=== PATIENT | female | born 1995 | race African-American/Black ===

== ENCOUNTER 2020-01-12 14:09 | Outpatient (CLI) | payer MEDICAID ==
[~2020-01-12 14:09] MED LIST: FERRIC CARBOXYMALTOSE 750 MG in NORMAL SALINE 250 ML IV PRN; NORMAL SALINE 250 ML IV PRN
[2020-01-12 14:28] VITALS: BP 142/79
== END 2020-01-12 15:34 | disposition home or self-care (01) ==
LOC: II 14:09 → 5TH 14:11 → II 15:34
PROVIDERS: ATTEND Student in an Organized Health Care Education/Training Program
DX: O99.019 Anemia complicating pregnancy, unspecified trimester (principal)
CPT/HCPCS: 96365; J7050; J1439

== ENCOUNTER 2020-01-19 08:11 | Outpatient (CLI) | payer MEDICAID ==
[2020-01-19 09:34] VITALS: BP 126/79
== END 2020-01-19 09:30 | disposition home or self-care (01) ==
LOC: II 08:11 → 5TH 08:14 → II 09:30
PROVIDERS: ATTEND Student in an Organized Health Care Education/Training Program
DX: O99.019 Anemia complicating pregnancy, unspecified trimester (principal)
CPT/HCPCS: 96365; J7050; J1439

== ENCOUNTER 2020-01-26 06:36 | Inpatient (IN) | payer MEDICAID ==
[2020-01-20 12:48] LABS: HEMATOCRIT 33.5 % (36.0-47.0); MEAN CORPUSCULAR HEMOGLOBIN 24.9 pg (27.0-33.4); MEAN CORPUSCULAR HGB CONC 32.8 g/dL (32.0-36.0); MEAN CORPUSCULAR VOLUME 76 fl (80-97); RED BLOOD COUNT 4.41 10^6/uL (3.72-5.28); RED CELL DISTRIBUTION WIDTH 16.9 % (11.5-14.0)
[2020-01-20 12:50] LABS: APPEARANCE,URINE SLIGHTLY-CLOUDY; BILIRUBIN,URINE NEGATIVE (NEGATIVE); GLUCOSE, URINE NEGATIVE (NEGATIVE); KETONES,URINE NEGATIVE (NEGATIVE); LEUKOCYTE ESTERASE,URINE NEGATIVE (NEGATIVE); NITRITE,URINE NEGATIVE (NEGATIVE); PROTEIN,URINE 30 mg/dL (NEGATIVE); URINE SPECIFIC GRAVITY 1.019
[2020-01-20 12:51] LABS: COLOR,URINE DARK YELLOW
[2020-01-20 13:04] LABS: URINE AMPHETAMINES SCREEN NEGATIVE; URINE BARBITURATES SCREEN NEGATIVE; URINE BENZODIAZEPINES SCREEN NEGATIVE; URINE COCAINE SCREEN NEGATIVE; URINE MARIJUANA (THC) SCREEN NEGATIVE; URINE METHADONE SCREEN NEGATIVE; URINE PHENCYCLIDINE SCREEN NEGATIVE
[2020-01-20 13:13] LABS: ABSOLUTE LYMPHOCYTES# (MANUAL) 1.5 10^3/uL (0.5-4.7); ABSOLUTE MONOCYTES # (MANUAL) 0.7 10^3/uL (0.1-1.4); BASOPHILS % (MANUAL) 0 % (0-2); EOSINOPHILS % (MANUAL) 1 % (0-6); LYMPHOCYTES % (MANUAL) 29 % (13-45); MONOCYTES % (MANUAL) 13 % (3-13); SEGMENTED NEUTROPHILS % (MAN) 57 % (42-78); TOTAL CELLS COUNTED 100
[2020-01-20 13:14] LABS: ANISOCYTOSIS 1+; POLYCHROMASIA SLIGHT
[2020-01-20 13:15] LABS: PLATELET CLUMPS PRESENT; PLATELET COMMENT ADEQUATE
[2020-01-20 13:16] LABS: PLATELET COUNT 252 10^3/uL (150-450)
[~2020-01-26 06:36] MED LIST changes: +CEFAZOLIN 2 GM/D5W RTU 2 GM/50 ML RTUPB IV PRN; -FERRIC CARBOXYMALTOSE 750 MG in NORMAL SALINE 250 ML IV PRN; +LACTATED RINGERS 1000 ML IV PRN; +LIDOCAINE 0.5% INJ-PF (5 MG/ML) 50 ML SDV SUBCUT PRN; -NORMAL SALINE 250 ML IV PRN; +RINGERS SOLUTION,LACTATED 1,500 ML IV PRN
[2020-01-26] MEDS ORDERED: OXYTOCIN 10 UNIT/ML VIAL ONE (08:28)
[2020-01-26] MEDS ORDERED: MIDAZOLAM 2 MG/2 ML INJ ONE (08:28)
[2020-01-26] MEDS ORDERED: CITRIC ACID/SODIUM CITRATE ORAL SOLN 15 ML UDCUP ONE (08:28)
[2020-01-26] MEDS ORDERED: OXYTOCIN/0.9 % SODIUM CHLORIDE 0 UNIT/0 ML RTUINJ ONE (08:28)
[2020-01-26] MEDS ORDERED: BUPIVACAINE HCL 0.25 % INJ/PF (2.5 MG/1 ML) 30 ML VIAL ONE (08:29)
[2020-01-26] MEDS ORDERED: ONDANSETRON HCL INJ/PF 4 MG/2 ML SDV ONE (08:29)
[2020-01-26 08:34] VITALS: BP 124/69
[2020-01-27] MEDS ORDERED: DIPHENHYDRAMINE HCL 50 MG/ML VIAL IV PRN (08:52)
[2020-01-27] MEDS ORDERED: MEPERIDINE HCL/PF INJ 25 MG/1 ML DISP.SYRIN IV PRN (08:52)
[2020-01-27] MEDS ORDERED: PROMETHAZINE HCL INJ 25 MG/1 ML VIAL IV PRN ×2 (08:52)
[2020-01-27] MEDS ORDERED: ONDANSETRON HCL INJ/PF 4 MG/2 ML SDV IV PRN (08:52)
[2020-01-27] MEDS ORDERED: FENTANYL CITRATE INJ/PF 100 MCG/2 ML AMPUL IV PRN ×3 (08:52)
== END 2020-01-26 15:00 | disposition home or self-care (01) | DRG 833 ==
LOC: INTOOBSV 07:51 → 2S 07:51 → OBSVTOIN 08:00
PROVIDERS: ADMIT Obstetrics & Gynecology; ATTEND Obstetrics & Gynecology
DX: O34.219 Maternal care for unspecified type scar from previous cesarean delivery (principal); Z3A.39 39 weeks gestation of pregnancy
CPT/HCPCS: 36415; 59025; 80307; 81001; 85025; 86850; 86900; 86901; 87635; C9803; J2250; J2405; J2590; J3490

== ENCOUNTER 2020-01-27 01:31 | Inpatient (IN) | payer MEDICAID ==
[2020-01-27] MEDS ORDERED: CEFAZOLIN 2 GM/D5W RTU 2 GM/50 ML RTUPB IV PRN (06:02)
[2020-01-27] MEDS ORDERED: RINGERS SOLUTION,LACTATED 1,500 ML IV ONE (06:15)
[2020-01-27] MEDS ORDERED: LIDOCAINE 0.5% INJ-PF (5 MG/ML) 50 ML SDV SUBCUT PRN (06:19)
[2020-01-27] MEDS ORDERED: LACTATED RINGERS 1000 ML IV PRN (06:19)
[2020-01-27] MEDS ORDERED: KETOROLAC TROMETHAMINE INJ/PF 30 MG/1 ML SDV ONE (07:24)
[2020-01-27] MEDS ORDERED: OXYTOCIN 10 UNIT/ML VIAL ONE (07:24)
[2020-01-27] MEDS ORDERED: MIDAZOLAM 2 MG/2 ML INJ ONE (07:25)
[2020-01-27] MEDS ORDERED: ACETAMINOPHEN 1,000 MG/100 ML RTUPB IV ONE (07:25)
[2020-01-27] MEDS ORDERED: ONDANSETRON HCL INJ/PF 4 MG/2 ML SDV ONE (07:25)
[2020-01-27] MEDS ORDERED: PHENYLEPHRINE HCL INJ/PF 10 MG/1 ML SDV ONE (07:25)
[2020-01-27] MEDS ORDERED: METHYLERGONOVINE MALEATE INJ/PF 0.2 MG/1 ML AMPULE ONE (07:25)
[2020-01-27] MEDS ORDERED: EPHEDRINE SULFATE INJ 50 MG/1 ML AMPULE ONE (07:25)
[2020-01-27] MEDS ORDERED: FENTANYL CITRATE INJ/PF 100 MCG/2 ML AMPUL ONE (07:25)
[2020-01-27] MEDS ORDERED: ROPIVACAINE HCL 0.2% INJ/PF (2 MG/ML) 20 ML SDV ONE (07:26)
--- NOTE | 2020-01-27 09:24 | Operative Report ---
Operative Report DATE OF SURGERY: 01/27/20 PREOPERATIVE DIAGNOSIS: Patient desires a repeat to prevent risk of u terine rupture POSTOPERATIVE DIAGNOSIS: Same OPERATION: Repeat via low transverse uterine incision SURGEON: BOUCHRA HEAD ANESTHESIA: GA TISSUE REMOVED OR ALTERED: Placenta COMPLICATIONS: None ESTIMATED BLOOD LOSS: 400 cc INTRAOPERATIVE FINDINGS: Viable female crying at delivery, meconium noted, no amniotic fluid noted. PROCEDURE: Patient was taken to the OR and placed in supine position after her spinal anesthesia. She is prepared and draped in sterile fashion. Dowling was placed for drainage of the bladder. Low transverse incision was made and carried down the level of the fascia. This was done excising her old keloid scar. The fascial incision was made with knife and extended bilaterally with curved Daniel scissors. The fascia was off the rectus muscles using sharp and blunt dissection. The rectus muscles are in the midline. The peritoneum was entered without incident. Bladder blade was placed in uterine segment was identified. A low transverse incision was made creating a bladder flap. Bladder blade was placed low transverse uterine incision was made with the knife and extended with fingertips. The baby was delivered with some fundal pressure. Mouth and nose were suctioned free. The cord is doubly clamped and cut. Baby is passed off to the mop man in attendance. The the uterus was very floppy at first however after the IV oxytocin was given if firmed up nicely. Also meconium was noted however there was very little amniotic fluid. The placenta was manually extracted with trailing membranes. The uterus was externalized wrapped in a moist lap sponge. Uterine contents wiped free. Uterus was closed with a running locking layer of 0 chromic suture using the second layer to imbricate the first completing a double layer closure of the uterus. The serosa was closed with a running 2-0 chromic stitch. The pelvis was irrigated and suctioned free of fluid the uterus was replaced in the abdomen. The abdominal wall peritoneum was closed with running 2-0 chromic stitch. Fascia was closed with a running 0 Vicryl in 2 segments. Wagner's layer was brought together with 0 plain gut stitch and the skin was closed with running subcuticular 4-0 undyed Vicryl stitch. The wound was dressed mother and baby did well.
[2020-01-27] MEDS ORDERED: ACETAMINOPHEN 325 MG TABLET PO PRN (09:26)
[2020-01-27] MEDS ORDERED: MEASLES,MUMPS&RUBELLA VACC/PF 0.5 ML VIAL SUBCUT PRN (09:26)
[2020-01-27] MEDS ORDERED: OXYCODONE-ACETAMINOPHEN 5-325 MG TABLET PO PRN (09:26)
[2020-01-27] MEDS ORDERED: RINGERS SOLUTION,LACTATED 1,000 ML IV PRN (09:26)
[2020-01-27] MEDS ORDERED: DIPH/PERTUSS(ACELL)/TETANUS VAC/PF 0.5 ML SYR (>=10YO) IM PRN (09:26)
[2020-01-27] MEDS ORDERED: ACETAMINOPHEN 1,000 MG/100 ML RTUPB IV PRN (09:26)
[2020-01-27] MEDS ORDERED: OXYTOCIN/0.9 % SODIUM CHLORIDE 30 UNIT/500 ML RTUINJ IV PRN (09:26)
[2020-01-27] MEDS ORDERED: HYDROMORPHONE HCL INJ/PF 2 MG/ML AMPULE IV PRN (09:26)
[2020-01-27] MEDS ORDERED: SIMETHICONE 80 MG TAB.CHEW PO PRN (09:26)
[2020-01-27] MEDS ORDERED: HYDROMORPHONE HCL INJ/PF 2 MG/ML AMPULE ONE (09:52)
[2020-01-27] MEDS ORDERED: SUCCINYLCHOLINE CHLORIDE INJ 200 MG/10 ML VIAL ONE (09:52)
[2020-01-27] MEDS ORDERED: PROMETHAZINE HCL INJ 25 MG/1 ML VIAL ONE (09:55)
[2020-01-27] MEDS: PROMETHAZINE HCL INJ 25 MG/1 ML VIAL IV PRN (09:56)
--- NOTE | 2020-01-27 10:20 | Delivery Summary ---
Del Sum A-C Datetime Report Generated by CPN: 01/27/2020 10:20 DELIVERY PERSONNEL DELIVERY PERSONNEL: [id number] Delivery Doctor:: Chrissy Tate MD MASTER SHIP:: Palmira Kirk CRNA Php Engineer:: Dee Dee Kumar RN Neonatal Nurse Practitioner:: JUANIS Juarez Nursery Nurse:: Karissa Platt RN Catechist/TECHNICAL PROJECT MANAGER: Jessenia Cuellar CST Catechist/TECHNICAL PROJECT MANAGER: Kim Shipman CST Additional Personnel: : Vlad Luevano RN MATERNAL INFORMATION Delivery Anesthesia: General Medications After Delivery: Pitocin 30 Units in 500ml NS/D5W; Pitocin Drip 20 Units/1000ml NSS Delivery QBL: 2730 Maternal Complications: None LABOR SUMMARY Attempted: No LABOR INFORMATION Reason for Induction: Not Applicable Oxytocin: N/A Group B Beta Strep: Positive Antibiotics # of Doses: n/a Steroids Given: None Reason Steroids Not Administered: Not Applicable MEMBRANES Membranes Rupture Method: Artificial Rupture of Membranes: 01/27/2020 08:49 Length of Rupture (hr): 0.00 Amniotic Fluid Amount: None STAGES OF LABOR Stage 3 hr: 0 Stage 3 min: 1 CSECTION DELIVERY Primary Indication: Repeat Elective Secondary Indication: N/A CSection Urgency: Scheduled CSection Incidence: Repeat Labor: N/A Elective: Elective CSection Incision: Lower Uterine Transverse BABY A INFORMATION Delivery Date/Time: 01/27/2020 08:49 Method of Delivery: Nurse Controlled Delivery: No Born in Route : No : N/A Forceps: N/A Vacuum Extraction: N/A Shoulder Dystocia : No PRESENTATION/POSITION BABY A Presentation: Cephalic Cephalic Presentation: Vertex Breech Presentation: N/A PLACENTA INFORMATION BABY A Placenta Delivery Time : 01/27/2020 08:50 Placenta Method of Delivery: Manual Removal Placenta Status: Delivered SCORES BABY A Heart Rate 1 min: >100 bpm Resp Effort 1 min: Good Cry Reflex Irritability 1 min: Cough or Sneeze or Pulls Away Muscle Tone 1 min: Some Flexion of Extremities Color 1 min: Blue/Pale Resuscitation Effort 1 min: Tactile Stimulation SCORE 1 MIN: 7 Heart Rate 5 min: >100 bpm Resp Effort 5 min: Good Cry Reflex Irritability 5 min: Cough or Sneeze or Pulls Away Muscle Tone 5 min: Some Flexion of Extremities Color 5 min: Body Barnum, Extremities Blue Resuscitation Effort 5 min: Tactile Stimulation SCORE 5 MIN: 8 INFANT INFORMATION BABY A Gestational Age at Delivery: 39.5 Gestational Status: Full Term- 39- 40.6 Weeks Outcome : Liveborn Condition : Stable Sex: Female IDENTIFICATION BABY A Infant Verification Date/Time: 01/27/2020 08:52 ID Band Number: [id number] Mother's Name Verified: Yes RN Verifying Infant: HamiltonkiJAY and Judy Platt RN WEIGHT/LENGTH BABY A Infant Birthweight (gm): 3050 Weight (lb): 6 Weight (oz): 12 Length (in): 20.25 Length (cm): 51.44 CORD INFORMATION BABY A No. Cord Vessels: 3 Nuchal Cord : N/A Cord Blood Taken: Yes-For Eval (Mom's Blood Type - or O+) Infant Suction: None ASSESSMENT BABY A Skin to Skin: No BABY B INFORMATION : N/A
[2020-01-27] MEDS ORDERED: OXYTOCIN/0.9 % SODIUM CHLORIDE 30 UNIT/500 ML RTUINJ ONE (10:47)
[2020-01-27 10:51] LABS: ABSOLUTE LYMPHOCYTES (AUTO) 1.4 10^3/uL (0.5-4.7); ABSOLUTE MONOCYTES (AUTO) 0.5 10^3/uL (0.1-1.4); ABSOLUTE NEUT (AUTO) 4.7 10^3/uL (1.7-8.2); BASOPHILS % (AUTO) 0.1 % (0-2); EOSINOPHILS % (AUTO) 0.2 % (0-6); HEMATOCRIT 28.1 % (36.0-47.0); HEMOGLOBIN 9.1 g/dL (12.0-15.5); LYMPHOCYTES % (AUTO) 20.7 % (13-45); MEAN CORPUSCULAR HGB CONC 32.5 g/dL (32.0-36.0); MEAN CORPUSCULAR VOLUME 77 fl (80-97); MONOCYTES % (AUTO) 8.2 % (3-13); PLATELET COUNT 200 10^3/uL (150-450); RED BLOOD COUNT 3.65 10^6/uL (3.72-5.28); RED CELL DISTRIBUTION WIDTH 18.6 % (11.5-14.0); SEGMENTED NEUTROPHILS % (AUTO) 70.8 % (42-78); TOTAL CELLS COUNTED % (AUTO) 100 %; WHITE BLOOD COUNT 6.6 10^3/uL (4.0-10.5)
[2020-01-27] MEDS: OXYCODONE-ACETAMINOPHEN 5-325 MG TABLET PO PRN ×3 (12:53→22:33)
[2020-01-27] MEDS: PRENATAL VITAMIN W DHA CAPSULE PO SCH (13:46)
[2020-01-27] MEDS: DOCUSATE SODIUM 100 MG CAPSULE PO SCH ×2 (13:46→17:57)
[2020-01-27 14:46] LABS: HEMATOCRIT 26.1 % (36.0-47.0); HEMOGLOBIN 8.6 g/dL (12.0-15.5); MEAN CORPUSCULAR HEMOGLOBIN 25.3 pg (27.0-33.4); MEAN CORPUSCULAR HGB CONC 32.9 g/dL (32.0-36.0); MEAN CORPUSCULAR VOLUME 77 fl (80-97); PLATELET COUNT 215 10^3/uL (150-450); WHITE BLOOD COUNT 9.1 10^3/uL (4.0-10.5)
[2020-01-27] MEDS: KETOROLAC TROMETHAMINE INJ/PF 30 MG/1 ML SDV IV SCH (17:57)
[2020-01-28] MEDS: KETOROLAC TROMETHAMINE INJ/PF 30 MG/1 ML SDV IV SCH (01:26)
[2020-01-28] MEDS: PROMETHAZINE HCL INJ 25 MG/1 ML VIAL IV PRN (01:31)
[2020-01-28] MEDS ORDERED: LIDOCAINE 0.5% INJ-PF (5 MG/ML) 50 ML SDV SUBCUT PRN (05:00)
[2020-01-28] MEDS ORDERED: LACTATED RINGERS 1000 ML IV PRN (05:00)
[2020-01-28 06:24] LABS: HEMATOCRIT 20.6 % (36.0-47.0); MEAN CORPUSCULAR HEMOGLOBIN 25.3 pg (27.0-33.4); MEAN CORPUSCULAR VOLUME 77 fl (80-97); PLATELET COUNT 190 10^3/uL (150-450); RED BLOOD COUNT 2.69 10^6/uL (3.72-5.28); RED CELL DISTRIBUTION WIDTH 18.7 % (11.5-14.0); WHITE BLOOD COUNT 8.1 10^3/uL (4.0-10.5)
[2020-01-28 06:27] LABS: HEMOGLOBIN 6.8 g/dL (12.0-15.5)
[2020-01-28] MEDS: IBUPROFEN 800 MG TABLET PO SCH ×3 (07:01→17:13)
[2020-01-28] MEDS: OXYCODONE-ACETAMINOPHEN 5-325 MG TABLET PO PRN ×3 (08:54→20:00)
[2020-01-28] MEDS ORDERED: MEASLES,MUMPS&RUBELLA VACC/PF 0.5 ML VIAL SUBCUT PRN (10:00)
[2020-01-28] MEDS ORDERED: DIPH/PERTUSS(ACELL)/TETANUS VAC/PF 0.5 ML SYR (>=10YO) IM PRN (10:00)
[2020-01-28] MEDS ORDERED: PROMETHAZINE HCL INJ 25 MG/1 ML VIAL IV PRN (10:00)
[2020-01-28] MEDS: DOCUSATE SODIUM 100 MG CAPSULE PO SCH ×2 (10:20→17:14)
[2020-01-28] MEDS: PRENATAL VITAMIN W DHA CAPSULE PO SCH (10:20)
--- NOTE | 2020-01-28 12:32 | PDOC PROGRESS REPORT ---
Subjective-OB Progress Note for:: 01/28/20 Subjective: laying in bed, good appetite, receiving 1 unit of blood, burping, c/o of pain in spinal area where spinal tap was attempted Physical Exam (OB) Vital Signs: Temp Pulse Resp BP Pulse Ox 97.9 F 114 H 18 117/67 100 01/28/20 10:51 01/28/20 10:51 01/28/20 10:51 01/28/20 10:51 01/28/20 10:51 Intake & Output 01/27/20 01/28/20 01/29/20 06:59 06:59 06:59 Intake Total 400 0 Output Total 800 300 Balance -400 -300 Weight 92.986 kg - PIH/Pre-Eclampsia DTR's: 1 + Clonus: Negative Headache: Absent Epigastric Pain: No Visual Changes: No - Dressing Removed: Yes Incision: Dressing - Lochia Lochia Amount: Small 10-25 ml Lochia Color: Rubra/Red - Abdomen Description: Soft, Round Hernia Present: No Fundal Description: Firm, Midline Fundal Height: u/u - u/2 Objective-Diagnostic Laboratory: 01/28/20 06:05 01/27/20 01/27/20 01/28/20 10:54 14:19 06:05 WBC 9.1 8.1 RBC 3.40 L 2.69 L Hgb 8.6 L 6.8 L Hct 26.1 L 20.6 L MCV 77 L 77 L MCH 25.3 L 25.3 L MCHC 32.9 33.0 RDW 19.0 H 18.7 H Plt Count 215 190 Blood Type O POSITIVE Antibody Screen NEGATIVE Assessment and Plan(PN) - Assessment and Plan (1) Status post repeat low transverse section Is this a current diagnosis for this admission?: Yes (2) Anemia, posthemorrhagic, acute Is this a current diagnosis for this admission?: Yes - Time Spent with Patient Time with patient: Less than 15 minutes Medications reviewed and adjusted accordingly: Yes - Disposition Anticipated Discharge Disposition: Home, Self Care Anticipated Discharge Timeframe: within 24 hours
[2020-01-28 15:42] LABS: HEMATOCRIT 25.8 % (36.0-47.0); HEMOGLOBIN 8.4 g/dL (12.0-15.5); MEAN CORPUSCULAR HEMOGLOBIN 25.6 pg (27.0-33.4); MEAN CORPUSCULAR HGB CONC 32.6 g/dL (32.0-36.0); MEAN CORPUSCULAR VOLUME 79 fl (80-97); PLATELET COUNT 215 10^3/uL (150-450); RED BLOOD COUNT 3.28 10^6/uL (3.72-5.28); RED CELL DISTRIBUTION WIDTH 18.2 % (11.5-14.0); WHITE BLOOD COUNT 9.8 10^3/uL (4.0-10.5)
[2020-01-29] MEDS: IBUPROFEN 800 MG TABLET PO SCH ×4 (00:26→17:11)
[2020-01-29] MEDS: OXYCODONE-ACETAMINOPHEN 5-325 MG TABLET PO PRN ×4 (05:56→20:25)
[2020-01-29] MEDS: PRENATAL VITAMIN W DHA CAPSULE PO SCH (09:24)
[2020-01-29] MEDS: DOCUSATE SODIUM 100 MG CAPSULE PO SCH ×2 (09:24→17:11)
--- NOTE | 2020-01-29 10:48 | PDOC DISCHARGE SUMMARY ---
Impression - Admit/DC Date/PCP Admission Date/Primary Care Provider: 01/27/20 04:50 MIAH ROSE MD Discharge Date: 01/29/20 - POD #2, doing well, no complaints, s/p Rpt , pt rec'd 1 unit PRBC. Pt desires to go home today. O+. bottlefeeding - Discharge Diagnosis (1) Normal course Is this a current diagnosis for this admission?: Yes (2) Anemia, posthemorrhagic, acute Is this a current diagnosis for this admission?: Yes (3) Status post repeat low transverse section Is this a current diagnosis for this admission?: Yes - Additional Information Resuscitation Status: Full Code Discharge Diet: As Tolerated, Regular Discharge Activity: Activity As Tolerated, No Driving, No Lifting Over 10 Pounds, Pelvic Rest Referrals: MIAH ROSE MD [Primary Care Provider] - Prescriptions: Ibuprofen [Motrin 800 mg Tablet] 800 mg PO Q6 #60 tablet Oxycodone HCl/Acetaminophen [Percocet 5-325 mg Tablet] 1 tab PO Q4HP PRN #30 tablet PRN Reason: Pain Scale Of 4 Home Medications: Ferrous Gluconate [Iron] 240 mg PO DAILY 01/12/20 Vitamin [-U Multiple Vitamin Capsule] 1 tab PO DAILY 01/12/20 Ibuprofen [Motrin 800 mg Tablet] 800 mg PO Q6 #60 tablet 01/29/20 Oxycodone HCl/Acetaminophen [Percocet 5-325 mg Tablet] 1 tab PO Q4HP PRN #30 tablet 01/29/20 HPI Reason(s) for Admission: Ceasarean Section-Repeat Procedures: Ultrasound, Management of Obstetric Complications - Pt rec'd 1 unit PRBC Intrapartum Procedure(s): : Low Cervical, Transverse Complication(s): Hemorrhage-Uterine Atony Hospital Course Hospital Course: stable Maternal Morbidity (serious complications experinced by the mother associated with labor and delivery: Maternal transfusion, Unplanned operating room procedure following delivery Results Laboratory Results: WBC 9.8 10^3/uL (4.0-10.5) 01/28/20 14:32 RBC 3.28 10^6/uL (3.72-5.28) L 01/28/20 14:32 Hgb 8.4 g/dL (12.0-15.5) L 01/28/20 14:32 Hct 25.8 % (36.0-47.0) L 01/28/20 14:32 MCV 79 fl (80-97) L 01/28/20 14:32 MCH 25.6 pg (27.0-33.4) L 01/28/20 14:32 MCHC 32.6 g/dL (32.0-36.0) 01/28/20 14:32 RDW 18.2 % (11.5-14.0) H 01/28/20 14:32 Plt Count 215 10^3/uL (150-450) 01/28/20 14:32 Lymph % (Auto) 20.7 % (13-45) 01/27/20 10:30 [place] % (Auto) 8.2 % (3-13) 01/27/20 10:30 Eos % (Auto) 0.2 % (0-6) 01/27/20 10:30 Baso % (Auto) 0.1 % (0-2) 01/27/20 10:30 Absolute Neuts (auto) 4.7 10^3/uL (1.7-8.2) 01/27/20 10:30 Absolute Lymphs (auto) 1.4 10^3/uL (0.5-4.7) 01/27/20 10:30 Absolute Monos (auto) 0.5 10^3/uL (0.1-1.4) 01/27/20 10:30 Absolute Eos (auto) 0.0 10^3/uL (0.0-0.6) 01/27/20 10:30 Absolute Basos (auto) 0.0 10^3/uL (0.0-0.2) 01/27/20 10:30 Seg Neutrophils % 70.8 % (42-78) 01/27/20 10:30 Blood Type O POSITIVE 01/27/20 10:54 Antibody Screen NEGATIVE 01/27/20 10:54 Crossmatch See Detail 01/27/20 10:54 Plan Health Concerns: iron rich foods Plan of Treatment: d/c home, f/up with [facility] in one week for incision check Time Spent: Less than 30 Minutes
[2020-01-29] MEDS: FERROUS SULFATE 325 MG TABLET PO SCH (15:40)
[2020-01-30] MEDS: IBUPROFEN 800 MG TABLET PO SCH ×4 (00:01→19:53)
[2020-01-30] MEDS: OXYCODONE-ACETAMINOPHEN 5-325 MG TABLET PO PRN ×3 (02:24→14:25)
[2020-01-30] MEDS: FERROUS SULFATE 325 MG TABLET PO SCH (10:17)
[2020-01-30] MEDS: PRENATAL VITAMIN W DHA CAPSULE PO SCH (10:17)
[2020-01-30] MEDS: DOCUSATE SODIUM 100 MG CAPSULE PO SCH ×2 (10:17→19:52)
[2020-01-30 15:30] VITALS: BP 121/53
[2020-02-02] MEDS ORDERED: FENTANYL CITRATE INJ/PF 100 MCG/2 ML AMPUL IV PRN ×3 (15:53)
[2020-02-02] MEDS ORDERED: PROMETHAZINE HCL INJ 25 MG/1 ML VIAL IV PRN ×2 (15:53)
[2020-02-02] MEDS ORDERED: MEPERIDINE HCL/PF INJ 25 MG/1 ML DISP.SYRIN IV PRN (15:53)
[2020-02-02] MEDS ORDERED: DIPHENHYDRAMINE HCL 50 MG/ML VIAL IV PRN (15:53)
[2020-02-02] MEDS ORDERED: ONDANSETRON HCL INJ/PF 4 MG/2 ML SDV IV PRN (15:53)
== END 2020-01-30 17:00 | disposition home or self-care (01) | DRG 787 ==
LOC: 2S 04:50
PROVIDERS: ADMIT Obstetrics & Gynecology; ATTEND Obstetrics & Gynecology
PROC: 10D00Z1 Extraction of Products of Conception, Low, Open Approach (ICD-10-PCS; principal; 2020-01-27)
PROC: 30233N1 Transfusion of Nonautologous Red Blood Cells into Peripheral Vein, Percutaneous Approach (ICD-10-PCS; 2020-01-28)
DX: O34.211 Maternal care for low transverse scar from previous cesarean delivery (principal); O72.1 Other immediate postpartum hemorrhage; D62 Acute posthemorrhagic anemia; N85.8 Other specified noninflammatory disorders of uterus; O99.824 Streptococcus B carrier state complicating childbirth; O90.81 Anemia of the puerperium; Z3A.39 39 weeks gestation of pregnancy; Z37.0 Single live birth
CPT/HCPCS: 1961; 36415; 36430; 59025; 64486; 76942; 85025; 85027; 86850; 86900; 86901; 86920; 94760; 94799; C1758; J0131; J0330; J1170; J1885; J2210; J2250; J2370; J2405; J2550; J2590; J2795; J3010; J3490; J7120; P9016